=== PATIENT | male | born 1970 | race American Indian/Alaskan Native ===

== ENCOUNTER 2017-03-07 13:45 | Observation (INO) | payer MEDICAID, OTHER ==
[2017-03-07 13:50] VITALS: BP 128/85; PULSE 80; RESP 18; TEMP 98; O2SAT 99
--- NOTE | 2017-03-07 14:33 | ED PDOC ---
Upper Extremity Pain/Injury Time Seen by Provider: 03/07/17 14:10 Chief Complaint (Nursing): Abnormal Skin Integrity Chief Complaint (Provider): Right hand injury History Per: Patient History/Exam Limitations: no limitations Onset/Duration Of Symptoms: Hrs (1 hour prior to arrival) Current Symptoms Are (Timing): Still Present Additional Complaint(s): Jurgen is a 46 y/o Left hand dominant male who presents to the ED for evaluation of right hand injury sustained 1 hour prior to arrival. States [facility] and sliced his right hand on the edge of the cabinet. Tetanus vaccination not up to date. PMD: Unknown Past Medical History Reviewed: Historical Data, Nursing Documentation, Vital Signs Vital Signs: Last Vital Signs Temp 98 F 03/07/17 13:48 Pulse 80 03/07/17 13:48 Resp 18 03/07/17 13:48 BP 128/85 03/07/17 13:48 Pulse Ox 99 03/07/17 13:48 - Family History Family History: States: No Known Family Hx - Social History Alcohol: Social Drugs: Denies - Immunization History Hx Tetanus Toxoid Vaccination: No - Home Medications Home Medications: Ambulatory Orders Medication Instructions Recorded Clindamycin [Cleocin] 300 mg PO TID #30 cap 03/07/17 Cyclobenzaprine [Flexeril] 5 mg PO BID PRN 03/07/17 Meloxicam [Mobic] 15 mg PO DAILY PRN 03/07/17 Tramadol HCl [Ultram] 50 mg PO Q6 #15 tab 03/07/17 - Allergies Allergies/Adverse Reactions: Allergies Allergy/AdvReac Type Severity Reaction Status Date / Time Penicillins Allergy RASH Verified 10/22/15 20:54 Review of Systems ROS Statement: Except As Marked, All Systems Reviewed And Found Negative Musculoskeletal: Positive for: Hand Pain (Laceration and pain to right hand) Physical Exam - Reviewed Nursing Documentation Reviewed: Yes Vital Signs Reviewed: Yes - Physical Exam Appears: Positive for: Well, Non-toxic, No Acute Distress Head Exam: Positive for: ATRAUMATIC, NORMAL INSPECTION, NORMOCEPHALIC Skin: Positive for: Normal Color, Warm, Dry Eye Exam: Positive for: EOMI, Normal appearance, PERRL Neck: Positive for: Normal, Painless ROM Respiratory: Positive for: Normal Breath Sounds. Negative for: Respiratory Distress Pulses-Radial (L): 2+ Pulses-Radial (R): 2+ Extremity: Positive for: Tenderness (Patient able to move DIP and PIP joints but extreme pain with abduction and adduction of the thumb), Capillary Refill ( < 2 sec), Other (Laceration to the thenar aspect of the hand, it is 2 in in length, very deep cut through the muscle belly, no physical evidence of tendon injury. Numbness on the radial aspect. Active bleeding.). Negative for: Normal ROM Neurologic/Psych: Positive for: Alert, Oriented - Laboratory Results Result Diagrams: 03/07/17 17:10 03/07/17 17:10 - ECG O2 Sat by Pulse Oximetry: 99 (RA) Pulse Ox Interpretation: Normal Medical Decision Making Medical Decision Making: Time: 14:10 Impression: Right Hand Laceration Plan: --Tetanus vaccine administered --Pending X-Ray Right Hand Time: 14:35 --Discussed case with Dr. Mcclellan, who recommended Plastic Surgery consult --Patient given Toradol, 30 mg IM --Paged Plastic Surgery for consult Time: 14:44 --Placed call to plastics, states he will be coming to repair wound. Pt prefers to have plastics consult as well. Tetanus booster provided to pt. Pt given Toradol for acute pain. --Wound irrigated with Betadine and normal saline and will be placed in ED-obs. MD Mitch as plastics consult will see pt at latest 8pm Time: 15:20 X-Ray Right Hand: FINDINGS: BONES: Normal. No fracture. JOINTS: Normal. No osteoarthritic changes. SOFT TISSUES: 2 mm a shell like calcification at the trapezium-navicular articulation level- tiny phlebolith is 1 consideration OTHER FINDINGS: None. IMPRESSION: No fracture. No marked spurring. time: 2116 MD Mitch is here examining pt. Scribe Attestation: Documented by Ree Walker, acting as a scribe for Nina Robbins PA-C Provider Scribe Attestation: All medical record entries made by the Scribe were at my direction and personally dictated by me. I have reviewed the chart and agree that the record accurately reflects my personal performance of the history, physical exam, medical decision making, and the department course for this patient. I have also personally directed, reviewed, and agree with the discharge instructions and disposition. ED OBSERVATION Discharge: Yes Date of observation admission: 03/07/17 Time of observation admission: 16:14 - Observation admission statement Patient is being placed in observation because:: Hand laceration - Goals of Observation Goals of observation are:: Resolution of symptoms - Progress Note Progress Note: 03/07/17 Time: 16:14 --Patient is resting. Vital signs stable. --Pending plastic surgery consult with Dr. Meyer Time: 16:54 --Patient continuing to have pain --Given 2 mg Morphine IV Time: 17:45 --Patient continues to rest. Vital signs stable. 03/07/17 21:35 pt will get laceration repair in ED by MD Mitch and have f/u with hand tx as an oupt. Disposition - Clinical Impression Clinical Impression: Laceration - Patient ED Disposition Is Patient to be Admitted: No Counseled Patient/Family Regarding: Studies Performed, Diagnosis, Need For Followup, Rx Given - Disposition Disposition: Routine/Home Disposition Time: 21:36 Condition: STABLE
[2017-03-07] MEDS ORDERED: Clindamycin 300 MG in Sodium Chloride 0.9% 100 ML IVPB STA (14:54)
--- NOTE | 2017-03-07 15:21 | RAD ---
PROCEDURE: Right Hand Radiographs. HISTORY: injury COMPARISON: None. FINDINGS: BONES: Normal. No fracture. JOINTS: Normal. No osteoarthritic changes. SOFT TISSUES: 2 mm a shell like calcification at the trapezium-navicular articulation level- tiny phlebolith is 1 consideration OTHER FINDINGS: None. IMPRESSION: No fracture. No marked spurring.
[2017-03-07 17:23] LABS: BASO % 0.6 % (0.0-2.0); EOS % 0.8 % (0.0-4.0); HEMATOCRIT 39.4 % (35.0-51.0); LYMPH # 1.4 K/uL (1.0-4.3); MEAN CELL VOLUME 82.7 fl (80.0-94.0); MEAN CORPUSCULAR HEMOGLOBIN 26.2 pg (27.0-31.0); MEAN CORPUSCULAR HGB CONC 31.7 g/dL (33.0-37.0); MEAN PLATELET VOLUME 8.5 fl (7.2-11.7); MONO # 0.2 K/uL (0.0-0.8); MONO % 5.4 % (0.0-10.0); NEUT # 2.9 K/uL (1.8-7.0); NEUT % 63.2 % (50.0-75.0); NRBC % 0.1 % (0.0-0.0); RED CELL DISTRIBUTION WIDTH 13.3 % (11.5-14.5); WHITE BLOOD COUNT 4.6 K/uL (4.8-10.8)
[2017-03-07 17:33] LABS: ALB/GLOB RATIO 1.6 (1.0-2.1); ALKALINE PHOSPHATASE 47 U/L (38-126); ALT/SGPT 33 U/L (21-72); AST/SGOT 26 U/L (17-59); BILIRUBIN,TOTAL 0.6 mg/dl (0.2-1.3); BLOOD UREA NITROGEN 12 mg/dl (9-20); CALCIUM 9.4 mg/dL (8.4-10.2); CARBON DIOXIDE 27 mmol/L (22-30); CHLORIDE 103 mmol/L (98-107); GFR AFRICAN-AMERICAN > 60; GLUCOSE,RANDOM 91 mg/dL (75-110); POTASSIUM 3.9 MMOL/L (3.6-5.0); SODIUM 140 mmol/l (132-148); TOTAL PROTEIN 7.3 G/DL (6.3-8.2)
[2017-03-07 17:34] LABS: PARTIAL THROMBOPLASTIN TIME 30.7 Seconds (25.6-37.1)
[2017-03-07] MEDS ORDERED: Lidocaine 1% Inj (20ml) ONE (21:30)
[2017-03-07] MEDS ORDERED: Bupivacaine HCl 0.5% PF (30 ml) Inj ONE (21:31)
[2017-03-07] MEDS ORDERED: Povidone Iodine Topical 10% Sol ONE (21:33)
--- NOTE | 2017-03-09 00:07 | CARD ---
APPROVED REPORT EKG Measurement Heart [id number] <Conclusion> Normal sinus rhythm ST & T wave abnormality, consider lateral ischemia Abnormal ECG
--- NOTE | 2017-03-26 21:08 | OP ---
PROCEDURE DATE: 03/07/2017 PREOPERATIVE DIAGNOSES: 1. A 4-cm right hand/thumb laceration. 2. Right thumb radial digital nerve laceration. 3. Right hand thenar muscle laceration. POSTOPERATIVE DIAGNOSES: 1. A 4-cm right hand/thumb laceration. 2. Right thumb radial digital nerve laceration. 3. Right hand thenar muscle laceration. PROCEDURE PERFORMED: 1. Exploration of penetrating wound to right hand. 2. Simple repair of 4 cm right hand laceration. SURGEON: Mary Meyer MD ANESTHESIA: Local, 0.5% Marcaine mixed with 1% lidocaine. INDICATION OF PROCEDURE: This is a 46-year-old right-hand dominant male who cut his right hand thumb over the thenar eminence at home. He presented to the emergency room with open wound of his right thumb. There was concern for muscle and nerve damage and x-ray done by the ER staff did not show any foreign bodies or fractures. I was consulted, I came in to evaluate and treat the patient. On physical exam, the patient had a 4-cm laceration on his right thumb thenar eminence on the radial aspect of his right palm. He had paresthesias on the radial aspect of the finger consistent with the nerve injury. He had good feeling to the ulnar aspect of the right thumb. He was able to flex the thumb and extend it indicating intact FPL and EPL tendons. Looking in the wound, the lateral portion of the thenar muscles appeared to be lacerated. There was good capillary refill to the thumb. The other fingers were normal. The bones were nontender. I explained to the patient that I would give him local. I had to irrigate the wound, explore it and close it. I told him he needs to have the nerve fixed within the next couple of weeks as well as thenar muscles and possibly other injured structures. I warned the patient if it is not fixed in the next 2 weeks, he risks permanent disability of his hand. The patient understood this and wished to proceed. I also warned him about the possibility of retained foreign body that may not show up on an x-ray or on exam, and that they may become symptomatic in the future and may need to be addressed at that time. He understood this. DESCRIPTION OF PROCEDURE: Marcaine, 0.5% mixed with 1% lidocaine was used locally on the wound. After allowing sufficient time for the anesthetic to take effect, the wound was thoroughly irrigated with few liters of normal saline and IV Betadine. I then explored the wound. I made the incision slightly larger. The radial digital nerve was lacerated as was the digital artery. The thenar muscles were also lacerated. The flexor tendon appeared intact. I then closed the skin with a running 3-0 Prolene suture for 4 cm. I placed bacitracin, Xeroform, and then a splint, keeping the right wrist and thumb slightly flexed. Once this was quite hardened, it allowed the patient to move. He tolerated the procedure well, discharged from the emergency room in stable condition. Postop wound care with limitation of his activities, the fact that it will scar, the prognosis of which is unknown, the need to followup with me or another hand surgeon in the next few days and have definitive surgery in the next couple of weeks of the nerve and muscle and may be other structures were discussed and all questions were answered. Mary Meyer MD
== END 2017-03-07 22:04 | disposition home or self-care (01) ==
LOC: H.ER 13:45 → H.EROBSV 16:14
PROVIDERS: ADMIT Emergency Medicine; ATTEND Emergency Medicine
DX: S61.411A Laceration without foreign body of right hand, initial encounter (principal); W25.XXXA Contact with sharp glass, initial encounter; Y92.9 Unspecified place or not applicable; Z88.0 Allergy status to penicillin; Z23 Encounter for immunization; S64.31XA Injury of digital nerve of right thumb, initial encounter; S66.821A Laceration of other specified muscles, fascia and tendons at wrist and hand level, right hand, initial encounter
CPT/HCPCS: 12002; 36415; 73130; 80053; 85025; 85610; 85730; 86850; 86900; 90471; 90715; 93005; 96372; 96374; 99282; G0378; J1885; J2270